=== PATIENT | female | born 1970 | race Caucasian/White ===

== ENCOUNTER 2018-03-14 12:59 | Emergency (ER) | payer SELFPAY ==
--- NOTE | 2018-03-14 13:46 | ER Document Report ---
HPI - HPI Patient complains to provider of: Right heel pain Onset: Other - Several months Pain Level: 4 Context: 47-year-old female complaining of right plantar heel pain that is worse in the mornings for several months. She came in today because she cannot stand the pain anymore. After she gets up and stretches and walks around the pain goes away but then when she is at work it starts hurting again. She does not have insurance and is not seen a doctor or pipe organ installer about this issue. Associated Symptoms: None Exacerbated by: Walking Relieved by: Other - Stretching in the morning helps Similar symptoms previously: Yes Recently seen / treated by doctor: No - ROS ROS below otherwise negative: Yes Systems Reviewed and Negative: Yes All other systems reviewed and negative Past Medical History - General Information source: Patient - Social History Smoking Status: Unknown if Ever Smoked Lives with: Family Family History: Reviewed & Not Pertinent - Medical History Medical History: Negative Surgical Hx: Negative Vertical Provider Document - CONSTITUTIONAL Agree With Documented VS: Yes Exam Limitations: No Limitations - INFECTION CONTROL TRAVEL OUTSIDE OF THE [place] IN LAST 30 DAYS: No - NECK Neck: Supple - MUSCULOSKELETAL/EXTREMETIES Musculoskeletal/Extremeties: MAEW, FROM, Tender - Left plantar fascia adjacent to the heel Notes: Nontender heel squeeze and nontender Achilles - NEURO Level of Consciousness: Awake Motor/Sensory: No Motor Deficit, No Sensory Deficit - DERM Integumentary: No Rash Course - Re-evaluation Re-evalutation: 03/14/18 14:43 Heel spur on x-ray will refer to pipe organ installer - Vital Signs Vital signs: Temp Pulse Resp BP Pulse Ox 98.2 F 93 18 160/105 H 94 03/14/18 13:07 03/14/18 13:07 03/14/18 13:07 03/14/18 13:07 03/14/18 13:07 Discharge - Discharge Clinical Impression: Plantar fasciitis Heel spur Qualifiers: Laterality: right Qualified Code(s): M77.31 - Calcaneal spur, right foot Condition: Good Disposition: HOME, SELF-CARE Instructions: Plantar Fasciitis or Heel Spur ([facility]), Ibuprofen (General) ([facility]) Additional Instructions: motrin for inflammation See the pipe organ installer Prescriptions: Ibuprofen [Motrin 800 mg Tablet] 800 mg PO Q8HP PRN #30 tab PRN Reason: Forms: Return to Work Referrals: ELYSIA VALENCIA DPM [ACTIVE STAFF] - Follow up as needed
--- NOTE | 2018-03-14 14:41 | RADIOLOGY REPORT (SQ) ---
EXAM DESCRIPTION: FOOT RIGHT COMPLETE COMPLETED DATE/TIME: 03/14/2018 2:25 pm REASON FOR STUDY: plantar pain COMPARISON: None. NUMBER OF VIEWS: Three views. TECHNIQUE: AP, lateral and oblique radiographic images acquired of the right foot. LIMITATIONS: None. FINDINGS: MINERALIZATION: Normal. BONES: Deformity of the 5th metatarsal from prior injury. Bony overgrowth in the head of the 1st met atarsal. No fracture. Prominent plantar calcaneal spur. JOINTS: Hallux valgus. SOFT TISSUES: No soft tissue swelling. No foreign body. OTHER: No other significant finding. IMPRESSION: Calcaneal spur. Bunion. TECHNICAL DOCUMENTATION: JOB ID: [id number] [employer]- All Rights Reserved Reading location - IP/workstation name: [email or web address]
[2018-03-14 14:53] VITALS: BP 151/102
== END 2018-03-14 14:53 | disposition home or self-care (01) ==
LOC: ER 12:59
DX: M72.2 Plantar fascial fibromatosis (principal); M77.31 Calcaneal spur, right foot
CPT/HCPCS: 99283

== ENCOUNTER 2018-07-27 16:37 | Inpatient (IN) | payer SELFPAY ==
[2018-07-27] MEDS ORDERED: ASPIRIN 81 MG TABLET, CHEWABLE PO ONE (17:53)
[2018-07-27] MEDS ORDERED: IPRATROPIUM/ALBUTEROL 0.5-2.5 MG/3 ML AMPUL NEB ONE (17:54)
[2018-07-27] MEDS ORDERED: METHYLPREDNISOLONE INJ 125 MG/2 ML SDV IV ONE (17:55)
--- NOTE | 2018-07-27 17:57 | ER Document Report ---
ED Medical Screen (RME) - General Chief Complaint: Shortness Of Breath Stated Complaint: SHORTNESS OF BREATH Time Seen by Provider: 07/27/18 17:43 Mode of Arrival: Ambulatory Information source: Patient Notes: 48-year-old female presents the emergency department with complaints of a productive cough with yellow sputum that started on Monday. She states that she began having fever, chills, diarrhea the next day. Today her temperature was 100.3. Patient states that she took Tylenol around noon. She denies any chest pain, nausea, vomiting, diaphoresis, abdominal pain. Patient is not on home oxygen. She was satting at 88% on arrival. She does have a history of COPD. Patient states that she does not have a nebulizer at home. She is been using her son's albuterol inhaler. She does smoke. I have greeted and performed a rapid initial assessment of this patient. A comprehensive ED assessment and evaluation of the patient, analysis of test results and completion of the medical decision making process will be conducted by additional ED providers. PHYSICAL EXAMINATION: GENERAL: Well-appearing, well-nourished and in no acute distress. HEAD: Atraumatic, normocephalic. EYES: Pupils equal round extraocular movements intact, conjunctiva are normal. ENT: Nares patent NECK: Normal range of motion LUNGS: Tight lung sounds with expiratory wheezing. Musculoskeletal: Normal range of motion TRAVEL OUTSIDE OF THE [place] IN LAST 30 DAYS: No - Related Data Allergies/Adverse Reactions: amoxicillin Allergy (Verified 07/27/18 17:40) Penicillins Allergy (Verified 07/27/18 17:40) Past Medical History - Social History Frequency of alcohol use: Rare Drug Abuse: None Pulmonary Medical History: Reports: Hx Asthma, Hx COPD Renal/ Medical History: Denies: Hx Peritoneal Dialysis Past Surgical History: Reports: Hx Section, Hx Orthopedic Surgery - right foot Physical Exam - Vital signs Vitals: Temp Pulse BP Pulse Ox 100.3 F 111 H 154/102 H 88 L 07/27/18 16:42 07/27/18 16:42 07/27/18 16:42 07/27/18 16:42 Course - Vital Signs Vital signs: Temp Pulse Resp BP Pulse Ox 100.3 F 111 H 154/102 H 88 L 07/27/18 16:42 07/27/18 16:42 07/27/18 16:42 07/27/18 16:42
--- NOTE | 2018-07-27 18:44 | RADIOLOGY REPORT (SQ) ---
EXAM DESCRIPTION: CHEST SINGLE VIEW COMPLETED DATE/TIME: 07/27/2018 6:27 pm REASON FOR STUDY: cough COMPARISON: None. EXAM PARAMETERS: NUMBER OF VIEWS: One view. TECHNIQUE: Single frontal radiographic view of the chest acquired. RADIATION DOSE: NA LIMITATIONS: None. FINDINGS: LUNGS AND PLEURA: No opacities, masses or pneumothorax. No pleural effusion. MEDIASTINUM AND HILAR STRUCTURES: No masses. Contour normal. HEART AND VASCULAR STRUCTURES: Heart normal in size. Normal vasculature. BONES: No acute findings. HARDWARE: None in the chest. OTHER: No other significant finding. IMPRESSION: NO ACUTE RADIOGRAPHIC FINDING IN THE CHEST. TECHNICAL DOCUMENTATION: JOB ID: [id number] [employer] All Rights Reserved Reading location - IP/workstation name: [email or web address]
[2018-07-27 22:03] LABS: ALANINE AMINOTRANSFERASE 37 U/L (9-52); ALBUMIN 4.7 g/dL (3.5-5.0); ALKALINE PHOSPHATASE 45 U/L (38-126); ANION GAP 10 (5-19); ASPARTATE AMINO TRANSFERASE 57 U/L (14-36); BILIRUBIN,DIRECT 0.3 mg/dL (0.0-0.4); BILIRUBIN,TOTAL 0.5 mg/dL (0.2-1.3); BLOOD UREA NITROGEN 13 mg/dL (7-20); CALCIUM 9.2 mg/dL (8.4-10.2); CARBON DIOXIDE 29 mmol/L (22-30); CHLORIDE 100 mmol/L (98-107); GLUCOSE 115 mg/dL (75-110); POTASSIUM 4.4 mmol/L (3.6-5.0); SODIUM 139.4 mmol/L (137-145); TOTAL PROTEIN 7.5 g/dL (6.3-8.2)
[2018-07-28 01:04] LABS: ABSOLUTE LYMPHOCYTES (AUTO) 0.6 10^3/uL (0.5-4.7); ABSOLUTE MONOCYTES (AUTO) 0.1 10^3/uL (0.1-1.4); ABSOLUTE NEUT (AUTO) 6.7 10^3/uL (1.7-8.2); BASOPHILS % (AUTO) 0.3 % (0-2); EOSINOPHILS % (AUTO) 0.1 % (0-6); HEMATOCRIT 34.3 % (36.0-47.0); HEMOGLOBIN 11.8 g/dL (12.0-15.5); LYMPHOCYTES % (AUTO) 8.4 % (13-45); MEAN CORPUSCULAR HEMOGLOBIN 32.8 pg (27.0-33.4); MEAN CORPUSCULAR HGB CONC 34.3 g/dL (32.0-36.0); MEAN CORPUSCULAR VOLUME 96 fl (80-97); MONOCYTES % (AUTO) 1.7 % (3-13); PLATELET COUNT 262 10^3/uL (150-450); RED BLOOD COUNT 3.59 10^6/uL (3.72-5.28); RED CELL DISTRIBUTION WIDTH 15.1 % (11.5-14.0); SEGMENTED NEUTROPHILS % (AUTO) 89.5 % (42-78); TOTAL CELLS COUNTED % (AUTO) 100 %; WHITE BLOOD COUNT 7.5 10^3/uL (4.0-10.5)
[2018-07-28 01:18] LABS: A TYPE INFLUENZA AG NEGATIVE (NEGATIVE); B INFLUENZA AG NEGATIVE (NEGATIVE)
[2018-07-28] MEDS ORDERED: IPRATROPIUM/ALBUTEROL 0.5-2.5 MG/3 ML AMPUL NEB ONE (01:29)
[2018-07-28] MEDS ORDERED: ALBUTEROL SULFATE 0.083% NEB 2.5 MG/3 ML AMPUL NEB ONE (01:29)
--- NOTE | 2018-07-28 01:31 | ER Document Report ---
ED General - General Chief Complaint: Shortness Of Breath Stated Complaint: SHORTNESS OF BREATH Time Seen by Provider: 07/27/18 17:43 Mode of Arrival: Ambulatory Notes: 48-year-old female without chronic medical problems, does currently smoke every day, no previous known diagnosis of COPD or asthma who presents the emergency department with complaints of a productive cough with yellow sputum that started on Monday. Symptoms have been worsening since onset. She states that she began having fever, chills, diarrhea the next day. Today her temperature was 100.3. Patient states that she took Tylenol around noon. She denies any chest pain, nausea, vomiting, diaphoresis, abdominal pain. Patient is not on home oxygen. She was satting at 88% on arrival. Patient states that she does not have a nebulizer at home. She is been using her son's albuterol inhaler. Patient denies that anything seems to improve her symptoms including her son's inhaler. She has not noted that anything seems to worsen her symptoms. No history of similar symptoms in the past. Patient does not have a primary care physician. TRAVEL OUTSIDE OF THE [place] IN LAST 30 DAYS: No - Related Data Allergies/Adverse Reactions: amoxicillin Allergy (Verified 07/27/18 17:40) Penicillins Allergy (Verified 07/27/18 17:40) Past Medical History - General Information source: Patient - Social History Smoking Status: Current Every Day Smoker Frequency of alcohol use: Rare Drug Abuse: None Lives with: Family Family History: Reviewed & Not Pertinent Patient has suicidal ideation: No Patient has homicidal ideation: No Pulmonary Medical History: Reports: Hx Asthma, Hx COPD Renal/ Medical History: Denies: Hx Peritoneal Dialysis Past Surgical History: Reports: Hx Section, Hx Orthopedic Surgery - right foot Review of Systems - Review of Systems Notes: Constitutional: Positive for fever. HENT: Negative for sore throat. Eyes: Negative for visual changes. Cardiovascular: Negative for chest pain. Respiratory: Positive for shortness of breath and cough Gastrointestinal: Negative for abdominal pain, vomiting or diarrhea. Genitourinary: Negative for dysuria. Musculoskeletal: Negative for back pain. Skin: Negative for rash. Neurological: Negative for headaches, weakness or numbness. 10 point ROS negative except as marked above and in HPI. Physical Exam - Vital signs Vitals: Temp Pulse BP Pulse Ox 100.3 F 111 H 154/102 H 88 L 02/08/19 16:42 07/27/18 16:42 07/27/18 16:42 07/27/18 16:42 Interpretation: Tachycardic, Hypoxic Notes: PHYSICAL EXAMINATION: GENERAL: Moderately ill in appearance but in no acute distress HEAD: Atraumatic, normocephalic. EYES: Pupils equal round and reactive to light, extraocular movements intact, sclera anicteric, conjunctiva are normal. ENT: nares patent, oropharynx clear without exudates. Moderately dry mucous membranes. NECK: Normal range of motion, supple without lymphadenopathy LUNGS: Moderately diminished at the bases bilaterally. No wheezing. No distress. HEART: Regular tachycardia without murmurs ABDOMEN: Soft, nontender, normoactive bowel sounds. No guarding, no rebound. No masses appreciated. EXTREMITIES: Normal range of motion, no pitting or edema. No cyanosis. NEUROLOGICAL: No focal neurological deficits. Moves all extremities spontaneously and on command. PSYCH: Normal mood, normal affect. SKIN: Warm, Dry, normal turgor, no rashes or lesions noted. Course - Re-evaluation Re-evalutation: 07/28/18 01:37 Patient presents with cough with sputum production, fever and constitutional symptoms worrisome for either bacterial pneumonia or influenza not formally diagnosed on flu testing. I did should have the patient 3 L of nasal cannula on initial assessment. Throughout my history taking the patient did desaturate down to 86% relatively rapidly with a good read on pulse oximetry. Patient has received multiple nebulizers prior to my assessment as well as steroids. She has no significant wheezing on examination to suggest an obstructive lung presentation. Patient has been started on levofloxacin for empiric coverage of a probable community-acquired pneumonia. Remainder of her labs are otherwise unremarkable. I discussed with Dr. Weber hospitalist who has accepted the patient for admission given her hypoxia. - Vital Signs Vital signs: Temp Pulse Resp BP Pulse Ox 99.1 F 89 16 117/81 94 07/27/18 21:37 07/27/18 21:37 07/27/18 21:37 07/27/18 21:37 07/27/18 21:37 - Laboratory Result Diagrams: 07/28/18 00:53 07/27/18 21:30 Laboratory results interpreted by me: 07/27/18 07/28/18 07/28/18 21:30 00:53 00:53 RBC 3.59 L Hgb 11.8 L Hct 34.3 L RDW 15.1 H Seg Neutrophils % 89.5 H Lymphocytes % 8.4 L Monocytes % 1.7 L Glucose 115 H AST 57 H Creatine Kinase 512 H - Diagnostic Test Radiology reviewed: Image reviewed, Reports reviewed Radiology results interpreted by me: 07/28/18 01:38 Chest x-ray: No acute infiltrate or pneumothorax - EKG Interpretation by Me Additional EKG results interpreted by me: 07/28/18 01:38 Sinus rhythm, rate 71. No ST elevations or depressions. QTC is 466. Discharge - Discharge Clinical Impression: Acute respiratory failure with hypoxia, Cough Dyspnea Qualifiers: Dyspnea type: unspecified Qualified Code(s): R06.00 - Dyspnea, unspecified Condition: Fair Disposition: ADMITTED INPATIENT Admitting Provider: Hospitalist Unit Admitted: Medical Floor
[2018-07-28] MEDS ORDERED: RINGERS SOLUTION,LACTATED 1,000 ML IV ONE (01:35)
[2018-07-28] MEDS ORDERED: LEVOFLOXACIN 750 MG/D5W RTU 750 MG/150 ML RTUPB IV ONE (02:00)
[2018-07-28] MEDS ORDERED: ONDANSETRON 4 MG TAB.RAPDIS PO PRN (02:32)
[2018-07-28] MEDS ORDERED: MAGNESIUM HYDROXIDE SUSP 30 ML UDCUP PO PRN (02:32)
[2018-07-28] MEDS ORDERED: MAG HYDROX/AL HYDROX/SIMETH SUSP 30 ML UDCUP PO PRN (02:32)
[2018-07-28] MEDS ORDERED: ONDANSETRON HCL INJ/PF 4 MG/2 ML SDV IV PRN (02:32)
[2018-07-28] MEDS ORDERED: NICOTINE 21 MG/24 HR PATCH.TD24 TD PRN (02:38)
[2018-07-28] MEDS ORDERED: NALBUPHINE HCL INJ 10 MG/1 ML AMPULE IV PRN (02:38)
[2018-07-28] MEDS ORDERED: IBUPROFEN 800 MG TABLET PO PRN (02:38)
[2018-07-28] MEDS ORDERED: ACETAMINOPHEN 325 MG TABLET PO PRN (02:38)
[2018-07-28] MEDS ORDERED: GUAIFENESIN SYRP 200 MG/10 ML UDC PO PRN (02:39)
[2018-07-28 03:10] LABS: CREATINE KINASE MB 2.87 ng/mL (<4.55); NT PRO BNP 67 pg/mL (<125)
[2018-07-28 03:13] LABS: TROPONIN I < 0.012 ng/mL
[2018-07-28] MEDS: METHYLPREDNISOLONE INJ 40 MG/1 ML SDV IV SCH ×2 (03:14→19:46)
[2018-07-28 03:40] LABS: FREE T3 0.58 pg/mL (2.77-5.27)
[2018-07-28 03:58] LABS: FREE T4 (FREE THYROXINE) < 0.07 ng/dL (0.78-2.19)
--- NOTE | 2018-07-28 05:24 | PDOC H&P ---
History of Present Illness Admission Date/PCP: 07/28/18 01:52 Patient complains of: Cough History of Present Illness: HARJIT HERNANDEZ is a 48 year old female who presented to the emergency room with a 3-day history of a cough with dyspnea. She admits that approximately 3 days ago she began having a cough that was initially productive of thick yellow mucus in small amounts but has subsequently become nonproductive or productive only of thin clear mucus. The cough is associated with dyspnea initially only with exertion but over the course of her illness dyspnea has become severe and present even when she is at rest. Additionally over the course of the illness she has experienced generalized malaise with a subjective fever and chills beginning the day after the onset of the illness and still being present at the time of her presentation. She also had diarrhea for 1 day beginning the day after her initial symptoms. She denies prior similar symptoms and has not identified any aggravating or ameliorating factors for her dyspnea and cough. She admits use of her sons inhaler but it did not have any positive effect on her symptoms. In the emergency room she was found to have a oxygen saturation of 88% and despite aggressive treatment with steroids and nebulizer therapy she was unable to maintain an oxygen saturation greater than 93% without supplemental oxygen. She was subsequently admitted to the hospital for further evaluation and treatment of her acute hypoxic respiratory failure Past Medical History Cardiac Medical History: Denies: Coronary Artery Disease, Hypertension Pulmonary Medical History: Denies: Asthma, Chronic Obstructive Pulmonary Disease (COPD), Respiratory Failure EENT Medical History: Denies: Cataracts, Nose - Epistaxis Neurological Medical History: Denies: Hemorrhagic CVA, Ischemic CVA, Seizures Endocrine Medical History: Denies: Diabetes Mellitus Type 1, Diabetes Mellitus Type 2 Renal/ Medical History: Denies: Chronic Kidney Disease, Nephrolithiasis Malignancy Medical History: Reports: None GI Medical History: Denies: Cirrhosis, Hepatitis Musculoskeltal Medical History: Denies: Arthritis, Gout Skin Medical History: Denies: Eczema, Psoriasis Psychiatric Medical History: Reports: Tobacco Dependency Denies: Alcohol Dependency, Substance Abuse Traumatic Medical History: Reports: None Hematology: Denies: Anemia, Bleeding Tendencies Infectious Medical History: Reports: None Past Surgical History Past Surgical History: Reports: Section, Orthopedic Surgery - right foot Social History Information Source: Patient Lives with: Family Smoking Status: Current Every Day Smoker Frequency of Alcohol Use: Rare Hx Recreational Drug Use: No Drugs: None Hx Prescription Drug Abuse: No - Advance Directive Resuscitation Status: Full Code Surrogate healthcare decision maker:: Family History Family History: CAD, Hypertension Parental Family History Reviewed: Yes Children Family History Reviewed: No Sibling(s) Family History Reviewed.: Yes Medication/Allergy Home Medications: Ibuprofen [Motrin 800 mg Tablet] 800 mg PO Q8HP PRN #30 tab 03/14/18 Allergies/Adverse Reactions: amoxicillin Allergy (Verified 07/27/18 17:40) Penicillins Allergy (Verified 07/27/18 17:40) Review of Systems Constitutional: PRESENT: as per HPI, chills, fever(s) Eyes: ABSENT: visual disturbances, other - Eye pain Ears: ABSENT: hearing changes, other - Ear pain Nose, Mouth, and Throat: ABSENT: mouth pain, sore throat Cardiovascular: PRESENT: as per HPI, dyspnea on exertion. ABSENT: chest pain, edema, orthropnea, palpitations Respiratory: PRESENT: as per HPI, cough, dyspnea, sputum. ABSENT: hemoptysis Gastrointestinal: PRESENT: diarrhea. ABSENT: abdominal pain, constipation, nausea, vomiting Genitourinary: ABSENT: dysuria, hematuria Musculoskeletal: ABSENT: deformity, joint swelling Integumentary: ABSENT: pruritus, rash Neurological: ABSENT: confusion, convulsions, memory loss Psychiatric: ABSENT: anxiety, depression Endocrine: ABSENT: cold intolerance, heat intolerance Hematologic/Lymphatic: ABSENT: easy bleeding, easy bruising Physical Exam Vital Signs: Temp Pulse Resp BP Pulse Ox 99.1 F 89 16 117/81 94 07/27/18 21:37 07/27/18 21:37 07/27/18 21:37 07/27/18 21:37 07/27/18 21:37 Intake & Output 07/26/18 07/27/18 07/28/18 23:59 23:59 23:59 Weight 62.4 kg General appearance: PRESENT: no acute distress, cooperative, other - On O2 via nasal cannula at 3 L/min Head exam: PRESENT: atraumatic, normocephalic Eye exam: PRESENT: conjunctiva pink, EOMI. ABSENT: scleral icterus Ear exam: PRESENT: normal external ear exam. ABSENT: bleeding, drainage Mouth exam: PRESENT: dry mucosa, neck supple Neck exam: ABSENT: JVD, thyromegaly, tracheal deviation Respiratory exam: PRESENT: decreased breath sounds - Decreased breath sounds in all cordova with poor air movement noted, prolonged expiratory phas - Severely prolonged expiratory phase, symmetrical, wheezes - End expiratory wheezes, other - On supplemental O2 at 3 L/min via nasal cannula Cardiovascular exam: PRESENT: RRR. ABSENT: clicks, gallop, rubs Pulses: PRESENT: normal radial pulses, normal dorsalis pedis pul Vascular exam: PRESENT: normal capillary refill. ABSENT: pallor GI/Abdominal exam: PRESENT: normal bowel sounds, soft Rectal exam: PRESENT: deferred Extremities exam: ABSENT: joint swelling, pedal edema Musculoskeletal exam: ABSENT: full ROM, normal inspection Neurological exam: PRESENT: alert, oriented to person, oriented to place, oriented to time, oriented to situation, CN II-XII grossly intact. ABSENT: motor sensory deficit Psychiatric exam: PRESENT: appropriate affect, normal mood Skin exam: PRESENT: dry, intact, warm. ABSENT: jaundice, rash, urticaria Results Laboratory Results: 07/28/18 00:53 07/27/18 21:30 07/27/18 07/27/18 07/27/18 19:42 19:42 21:30 WBC Cancelled RBC Cancelled Hgb Cancelled Hct Cancelled MCV Cancelled MCH Cancelled MCHC Cancelled RDW Cancelled Plt Count Cancelled Seg Neutrophils % Cancelled Lymphocytes % Cancelled Monocytes % Cancelled Eosinophils % Cancelled Basophils % Cancelled Absolute Neutrophils Cancelled Absolute Lymphocytes Cancelled Absolute Monocytes Cancelled Absolute Eosinophils Cancelled Absolute Basophils Cancelled Sodium Cancelled 139.4 Potassium Cancelled 4.4 Chloride Cancelled 100 Carbon Dioxide Cancelled 29 Anion Gap Cancelled 10 BUN Cancelled 13 Creatinine Cancelled 0.95 Est GFR ( Amer) Cancelled > 60 Est GFR (Non-Af Amer) Cancelled > 60 Glucose Cancelled 115 H Calcium Cancelled 9.2 Total Bilirubin Cancelled 0.5 AST Cancelled 57 H ALT Cancelled 37 Alkaline Phosphatase Cancelled 45 Total Protein Cancelled 7.5 Albumin Cancelled 4.7 07/28/18 00:53 WBC 7.5 RBC 3.59 L Hgb 11.8 L Hct 34.3 L MCV 96 MCH 32.8 MCHC 34.3 RDW 15.1 H Plt Count 262 Seg Neutrophils % 89.5 H Lymphocytes % 8.4 L Monocytes % 1.7 L Eosinophils % 0.1 Basophils % 0.3 Absolute Neutrophils 6.7 Absolute Lymphocytes 0.6 Absolute Monocytes 0.1 Absolute Eosinophils 0.0 Absolute Basophils 0.0 Sodium Potassium Chloride Carbon Dioxide Anion Gap BUN Creatinine Est GFR ( Amer) Est GFR (Non-Af Amer) Glucose Calcium Total Bilirubin AST ALT Alkaline Phosphatase Total Protein Albumin 07/27/18 07/27/18 19:42 21:30 Troponin I Cancelled < 0.012 Impressions: Chest X-Ray 07/27/18 17:54 IMPRESSION: NO ACUTE RADIOGRAPHIC FINDING IN THE CHEST. Assessment & Plan - Diagnosis (1) Acute respiratory failure with hypoxia Is this a current diagnosis for this admission?: Yes Plan: Patient be maintained on respiratory support with supplemental oxygen as long as required. (2) Acute exacerbation of chronic obstructive pulmonary disease (COPD) Is this a current diagnosis for this admission?: Yes Plan: Patient will be treated with Xopenex, Atrovent, Pulmicort and albuterol via nebulizer. She will receive intravenous Solu-Medrol and will be on respiratory support with supplemental oxygen as long as required and in any form that is required. She will receive additional symptomatic and supportive cares as needed. (3) Tobacco use disorder, moderate, dependence Is this a current diagnosis for this admission?: Yes Plan: Smoking cessation is advised and counseled briefly. A nicotine replacement patch is available to the patient. (4) Anemia, normocytic normochromic Is this a current diagnosis for this admission?: Yes Plan: Patient's anemia will be evaluated initially during her hospital course with a basic anemia profile being obtained and further investigation and/or treatment based on those results. - Time Time Spent: 30 to 50 Minutes Critical Time spent with patient: Less than 15 minutes Smoking Cessation Education: 3 to 10 minutes Medications reviewed and adjusted accordingly: Yes Anticipated discharge: Home
[2018-07-28] MEDS: NORMAL SALINE 1000 ML 1,000 ML IV PRN ×3 (07:02→21:11)
[2018-07-28] MEDS: BUDESONIDE NEB 0.5 MG/2 ML AMPUL NEB SCH ×2 (07:55→20:02)
[2018-07-28] MEDS: IPRATROPIUM BROMIDE 0.02% NEB 0.5 MG/2.5 ML AMPUL NEB SCH ×2 (07:55→16:15)
[2018-07-28] MEDS: LEVALBUTEROL HCL NEB 1.25 MG/3 ML AMPUL NEB SCH ×2 (07:55→16:15)
[2018-07-28] MEDS ORDERED: FONDAPARINUX SODIUM INJ 2.5 MG/0.5 ML DISP.SYRIN SUBCUT SCH (08:00)
[2018-07-28] MEDS: ACETYLCYSTEINE 20% SOLN 800 MG/4 ML VIAL.NEB NEB SCH ×2 (08:05→20:02)
[2018-07-28 09:38] LABS: TROPONIN I < 0.012 ng/mL
[2018-07-28] MEDS: FAMOTIDINE 20 MG TABLET PO SCH ×2 (10:57→21:11)
[2018-07-28] MEDS: DOCUSATE SODIUM 100 MG CAPSULE PO SCH ×2 (10:57→18:04)
[2018-07-28] MEDS: PREDNISONE 20 MG TABLET PO SCH (10:57)
[2018-07-28] MEDS: FONDAPARINUX SODIUM INJ 2.5 MG/0.5 ML DISP.SYRIN SUBCUT SCH (10:57)
--- NOTE | 2018-07-28 11:51 | Progress Note ---
Provider Note Provider Note: Patient admitted overnight. Feeling much better this AM, however still requiring supplemental O2 which is new. Continues to smoke however has cut back from 1PPD to 0.5PPD. Has not had hospitalization for COPD exacerbation previously. Labs notable for TSH 34.5 and Free T4 <0.07. Patient denies overt signs or symptoms of hypothyroidism. Plan - Given improvement, d/c IV steroids and started PO prednisone for 4 additional days - Started synthroid, will need to have repeat thyroid studies in 2 months - C/s-ed social work for assistance with insurance and finding a PCP
[2018-07-28] MEDS: LEVOTHYROXINE SODIUM 0.025 MG TABLET PO SCH (13:32)
[2018-07-28 15:46] LABS: CREATINE KINASE MB 5.24 ng/mL (<4.55)
[2018-07-28 15:49] LABS: TROPONIN I < 0.012 ng/mL
[2018-07-28] MEDS: ALBUTEROL SULFATE 0.083% NEB 2.5 MG/3 ML AMPUL NEB PRN (20:02)
--- NOTE | 2018-07-28 20:11 | EKG REPORT ---
SEVERITY:- BORDERLINE ECG - SINUS RHYTHM BORDERLINE T ABNORMALITIES, ANT-LAT LEADS : Confirmed by: Aleksandra Arroyo 28-Jul-2018 20:11:01
[2018-07-28] MEDS: LEVOFLOXACIN 750 MG TABLET PO SCH (21:11)
[2018-07-29] MEDS: IPRATROPIUM BROMIDE 0.02% NEB 0.5 MG/2.5 ML AMPUL NEB SCH ×3 (01:40→15:33)
[2018-07-29] MEDS: LEVALBUTEROL HCL NEB 1.25 MG/3 ML AMPUL NEB SCH ×3 (01:40→15:31)
[2018-07-29] MEDS: LEVOTHYROXINE SODIUM 0.025 MG TABLET PO SCH (05:19)
[2018-07-29 07:11] LABS: ABSOLUTE LYMPHOCYTES (AUTO) 1.3 10^3/uL (0.5-4.7); ABSOLUTE MONOCYTES (AUTO) 0.6 10^3/uL (0.1-1.4); ABSOLUTE NEUT (AUTO) 10.5 10^3/uL (1.7-8.2); HEMATOCRIT 30.6 % (36.0-47.0); HEMOGLOBIN 10.5 g/dL (12.0-15.5); LYMPHOCYTES % (AUTO) 10.8 % (13-45); MEAN CORPUSCULAR HEMOGLOBIN 32.9 pg (27.0-33.4); MEAN CORPUSCULAR HGB CONC 34.4 g/dL (32.0-36.0); MEAN CORPUSCULAR VOLUME 96 fl (80-97); MONOCYTES % (AUTO) 4.8 % (3-13); PLATELET COUNT 277 10^3/uL (150-450); SEGMENTED NEUTROPHILS % (AUTO) 84.4 % (42-78); TOTAL CELLS COUNTED % (AUTO) 100 %; WHITE BLOOD COUNT 12.4 10^3/uL (4.0-10.5)
[2018-07-29 07:32] LABS: ANION GAP 7 (5-19); BLOOD UREA NITROGEN 13 mg/dL (7-20); CALCIUM 8.9 mg/dL (8.4-10.2); CARBON DIOXIDE 30 mmol/L (22-30); CHLORIDE 106 mmol/L (98-107); CHOLESTEROL 306.37 mg/dL (0-200); GLUCOSE 79 mg/dL (75-110); SODIUM 143.3 mmol/L (137-145); TRIGLYCERIDES 78 mg/dL (<150)
[2018-07-29 07:43] LABS: DIRECT LDL 212 mg/dL (<100)
[2018-07-29] MEDS: BUDESONIDE NEB 0.5 MG/2 ML AMPUL NEB SCH ×2 (07:50→21:00)
[2018-07-29] MEDS: ACETYLCYSTEINE 20% SOLN 800 MG/4 ML VIAL.NEB NEB SCH ×2 (07:50→21:00)
[2018-07-29] MEDS: FONDAPARINUX SODIUM INJ 2.5 MG/0.5 ML DISP.SYRIN SUBCUT SCH (07:55)
[2018-07-29] MEDS: DOCUSATE SODIUM 100 MG CAPSULE PO SCH ×2 (10:50→18:36)
[2018-07-29] MEDS: PREDNISONE 20 MG TABLET PO SCH (10:51)
[2018-07-29] MEDS: FAMOTIDINE 20 MG TABLET PO SCH ×2 (10:51→22:22)
--- NOTE | 2018-07-29 13:38 | PDOC PROGRESS REPORT ---
Subjective Progress Note for:: 07/29/18 Subjective:: Doing better overnight. Breathing significantly improved. Notes occasional nausea which improves with Zofran. Cough persists and mucus production is more as is looser. Denies fevers, chills, CP, abdominal pain. PO intake adequate. Walked halls yesterday. NO other complaints. Reason For Visit: ACUTE EXACERBATION OF COPD Physical Exam Vital Signs: Temp Pulse Resp BP Pulse Ox 98.3 F 69 18 130/75 H 94 07/29/18 11:11 07/29/18 11:11 07/29/18 11:11 07/29/18 11:11 07/29/18 11:11 Intake & Output 07/28/18 07/29/18 07/30/18 06:59 06:59 06:59 Intake Total 1000 4850 Balance 1000 4850 Weight 60.9 kg 62.3 kg General appearance: PRESENT: no acute distress, cooperative, well-developed, well-nourished Mouth exam: PRESENT: dry mucosa Throat exam: ABSENT: tonsillar erythema Respiratory exam: PRESENT: unlabored, wheezes - Occasional expiratory wheezes, other - Improve aeration Cardiovascular exam: PRESENT: +S1, +S2. ABSENT: tachycardia GI/Abdominal exam: PRESENT: normal bowel sounds, soft. ABSENT: tenderness Extremities exam: ABSENT: +1 edema Musculoskeletal exam: PRESENT: ambulatory Neurological exam: PRESENT: alert, awake, CN II-XII grossly intact. ABSENT: aphasic Psychiatric exam: PRESENT: appropriate affect, normal mood Skin exam: PRESENT: dry, intact Results Laboratory Results: 07/29/18 06:34 07/29/18 06:34 07/29/18 07/29/18 06:34 06:34 WBC 12.4 H RBC 3.20 L Hgb 10.5 L Hct 30.6 L MCV 96 MCH 32.9 MCHC 34.4 RDW 15.0 H Plt Count 277 Seg Neutrophils % 84.4 H Lymphocytes % 10.8 L Monocytes % 4.8 Eosinophils % 0.0 Basophils % 0.0 Absolute Neutrophils 10.5 H Absolute Lymphocytes 1.3 Absolute Monocytes 0.6 Absolute Eosinophils 0.0 Absolute Basophils 0.0 Sodium 143.3 Potassium 4.0 Chloride 106 Carbon Dioxide 30 Anion Gap 7 BUN 13 Creatinine 0.79 Est GFR ( Amer) > 60 Est GFR (Non-Af Amer) > 60 Glucose 79 Calcium 8.9 Magnesium 2.2 Triglycerides 78 Cholesterol 306.37 H LDL Cholesterol Direct 212 H VLDL Cholesterol 16.0 HDL Cholesterol 48 07/27/18 07/27/18 07/28/18 19:42 21:30 00:53 Creatine Kinase CK-MB (CK-2) 2.87 Troponin I Cancelled < 0.012 < 0.012 NT-Pro-B Natriuret Pep 67 07/28/18 07/28/18 07/28/18 00:53 08:46 08:58 Creatine Kinase 512 H 543 H CK-MB (CK-2) 4.40 Troponin I < 0.012 NT-Pro-B Natriuret Pep 07/28/18 07/28/18 14:36 14:36 Creatine Kinase 508 H CK-MB (CK-2) 5.24 H Troponin I < 0.012 NT-Pro-B Natriuret Pep Impressions: Chest X-Ray 07/27/18 17:54 IMPRESSION: NO ACUTE RADIOGRAPHIC FINDING IN THE CHEST. Assessment & Plan - Diagnosis (1) Acute exacerbation of chronic obstructive pulmonary disease (COPD) Is this a current diagnosis for this admission?: Yes Plan: Markedly improved since admission - Not requiring supplemental O2 at time of exam this AM - Continue management with breathing treatments, Levaquin, and Prednisone 40mg daily PO Outpatient plan - Complete short course of Levaquin 750mg, last dose is 07/31 - Complete prednisone 40mg daily, end date is 08/01 - will need script for Spiriva Prior to discharge should meet with social work for referral for insurance and PCP (2) Acute respiratory failure with hypoxia Is this a current diagnosis for this admission?: Yes Plan: Improved, no off supplemental O2 (3) Cough Is this a current diagnosis for this admission?: Yes Plan: Persists however looser today - COntinue Guaifenesin and Mucomist (4) Hypothyroidism Is this a current diagnosis for this admission?: Yes Plan: New diagnosis based on labs - Started on Low dose synthroid. Will need script at discharge - Should have repeat TFTs in 2 months (5) Tobacco use disorder, moderate, dependence Is this a current diagnosis for this admission?: Yes - Time Time Spent with patient: Less than 15 minutes Anticipated discharge: Home, Home with Homehealth Within: within 24 hours
[2018-07-29] MEDS: ALBUTEROL SULFATE 0.083% NEB 2.5 MG/3 ML AMPUL NEB PRN (21:00)
[2018-07-29] MEDS: LEVOFLOXACIN 750 MG TABLET PO SCH (22:22)
[2018-07-30] MEDS: LEVALBUTEROL HCL NEB 1.25 MG/3 ML AMPUL NEB SCH ×3 (00:58→15:54)
[2018-07-30] MEDS: IPRATROPIUM BROMIDE 0.02% NEB 0.5 MG/2.5 ML AMPUL NEB SCH ×3 (00:58→15:53)
[2018-07-30] MEDS: LEVOTHYROXINE SODIUM 0.025 MG TABLET PO SCH (05:10)
[2018-07-30 06:31] LABS: ABSOLUTE LYMPHOCYTES (AUTO) 1.8 10^3/uL (0.5-4.7); ABSOLUTE MONOCYTES (AUTO) 0.5 10^3/uL (0.1-1.4); ABSOLUTE NEUT (AUTO) 8.4 10^3/uL (1.7-8.2); BASOPHILS % (AUTO) 0.1 % (0-2); HEMATOCRIT 32.8 % (36.0-47.0); HEMOGLOBIN 11.3 g/dL (12.0-15.5); MEAN CORPUSCULAR HEMOGLOBIN 32.9 pg (27.0-33.4); MEAN CORPUSCULAR HGB CONC 34.4 g/dL (32.0-36.0); MEAN CORPUSCULAR VOLUME 96 fl (80-97); PLATELET COUNT 304 10^3/uL (150-450); RED BLOOD COUNT 3.43 10^6/uL (3.72-5.28); RED CELL DISTRIBUTION WIDTH 14.9 % (11.5-14.0); SEGMENTED NEUTROPHILS % (AUTO) 77.9 % (42-78); TOTAL CELLS COUNTED % (AUTO) 100 %; WHITE BLOOD COUNT 10.8 10^3/uL (4.0-10.5)
[2018-07-30 06:50] LABS: ANION GAP 9 (5-19); BLOOD UREA NITROGEN 10 mg/dL (7-20); CALCIUM 8.7 mg/dL (8.4-10.2); CARBON DIOXIDE 32 mmol/L (22-30); CHLORIDE 100 mmol/L (98-107); GLUCOSE 80 mg/dL (75-110); POTASSIUM 3.7 mmol/L (3.6-5.0); SODIUM 140.7 mmol/L (137-145)
[2018-07-30] MEDS: FONDAPARINUX SODIUM INJ 2.5 MG/0.5 ML DISP.SYRIN SUBCUT SCH (09:15)
[2018-07-30] MEDS: BUDESONIDE NEB 0.5 MG/2 ML AMPUL NEB SCH ×2 (09:51→20:06)
[2018-07-30] MEDS: ACETYLCYSTEINE 20% SOLN 800 MG/4 ML VIAL.NEB NEB SCH ×2 (09:52→20:06)
[2018-07-30] MEDS: PREDNISONE 20 MG TABLET PO SCH ×2 (10:49→10:57)
[2018-07-30] MEDS: FAMOTIDINE 20 MG TABLET PO SCH ×2 (10:50→22:25)
[2018-07-30] MEDS: DOCUSATE SODIUM 100 MG CAPSULE PO SCH ×2 (10:54→18:01)
[2018-07-30] MEDS ORDERED: PREDNISONE 20 MG TABLET ONE (10:57)
[2018-07-30] MEDS: ALBUTEROL SULFATE 0.083% NEB 2.5 MG/3 ML AMPUL NEB PRN (20:06)
[2018-07-30] MEDS: LEVOFLOXACIN 750 MG TABLET PO SCH (22:25)
--- NOTE | 2018-07-30 23:40 | PDOC PROGRESS REPORT ---
Subjective Progress Note for:: 07/30/18 Subjective:: 48 y.o. F with a hx of COPD comes to [facility] for dyspnea. She is admitted to the hospitalist service for a COPD exacerbation. The patient was seen this afternoon on rounds. She is resting comfortably in bed on nasal cannula. Nursing staff reports the patient was coughing a great deal this morning. The patient's SPO2 dropped to low 80s. The patient states she 'does not feel as well today as she did yesterday.' Lungs clear to auscultation. The patient does not appear to be in respiratory distress. No evidence of labored breathing. No central or peripheral cyanosis. Reason For Visit: ACUTE EXACERBATION OF COPD Physical Exam Vital Signs: Temp Pulse Resp BP Pulse Ox 98.0 F 65 14 131/81 H 97 07/30/18 21:30 07/30/18 21:30 07/30/18 21:30 07/30/18 21:30 07/30/18 21:30 Intake & Output 07/29/18 07/30/18 07/31/18 06:59 06:59 06:59 Intake Total 4850 550 990 Balance 4850 550 990 Weight 62.3 kg General appearance: PRESENT: no acute distress, well-developed, well-nourished Head exam: PRESENT: atraumatic, normocephalic Eye exam: PRESENT: conjunctiva pink, EOMI, PERRLA. ABSENT: scleral icterus Ear exam: PRESENT: normal external ear exam Mouth exam: PRESENT: moist, tongue midline Neck exam: ABSENT: carotid bruit, JVD, lymphadenopathy, thyromegaly Respiratory exam: PRESENT: clear to auscultation suraj. ABSENT: rales, rhonchi, wheezes Cardiovascular exam: PRESENT: RRR. ABSENT: diastolic murmur, rubs, systolic murmur Pulses: PRESENT: normal dorsalis pedis pul Vascular exam: PRESENT: normal capillary refill GI/Abdominal exam: PRESENT: normal bowel sounds, soft. ABSENT: distended, guarding, mass, organolmegaly, rebound, tenderness Rectal exam: PRESENT: deferred Extremities exam: PRESENT: full ROM. ABSENT: calf tenderness, clubbing, pedal edema Neurological exam: PRESENT: alert, awake, oriented to person, oriented to place, oriented to time, oriented to situation, CN II-XII grossly intact. ABSENT: motor sensory deficit Psychiatric exam: PRESENT: appropriate affect, normal mood. ABSENT: homicidal ideation, suicidal ideation Skin exam: PRESENT: dry, intact, warm. ABSENT: cyanosis, rash Results Laboratory Results: 07/30/18 06:15 07/30/18 06:15 07/30/18 07/30/18 06:15 06:15 WBC 10.8 H RBC 3.43 L Hgb 11.3 L Hct 32.8 L MCV 96 MCH 32.9 MCHC 34.4 RDW 14.9 H Plt Count 304 Seg Neutrophils % 77.9 Lymphocytes % 17.0 Monocytes % 5.0 Eosinophils % 0.0 Basophils % 0.1 Absolute Neutrophils 8.4 H Absolute Lymphocytes 1.8 Absolute Monocytes 0.5 Absolute Eosinophils 0.0 Absolute Basophils 0.0 Sodium 140.7 Potassium 3.7 Chloride 100 Carbon Dioxide 32 H Anion Gap 9 BUN 10 Creatinine 0.77 Est GFR ( Amer) > 60 Est GFR (Non-Af Amer) > 60 Glucose 80 Calcium 8.7 Magnesium 2.0 07/27/18 07/27/18 07/28/18 19:42 21:30 00:53 Creatine Kinase CK-MB (CK-2) 2.87 Troponin I Cancelled < 0.012 < 0.012 NT-Pro-B Natriuret Pep 67 07/28/18 07/28/18 07/28/18 00:53 08:46 08:58 Creatine Kinase 512 H 543 H CK-MB (CK-2) 4.40 Troponin I < 0.012 NT-Pro-B Natriuret Pep 07/28/18 07/28/18 14:36 14:36 Creatine Kinase 508 H CK-MB (CK-2) 5.24 H Troponin I < 0.012 NT-Pro-B Natriuret Pep Impressions: Chest X-Ray 07/27/18 17:54 IMPRESSION: NO ACUTE RADIOGRAPHIC FINDING IN THE CHEST. Status: Imported from PACS Assessment & Plan - Diagnosis (1) Acute exacerbation of chronic obstructive pulmonary disease (COPD) Is this a current diagnosis for this admission?: Yes Plan: Secondary to URI Continue management with PRN and scheduled nebulizers, Levaquin, and Prednisone 40mg daily PO Outpatient plan: - Complete short course of Levaquin 750mg, last dose is 07/31 - Complete prednisone 40mg daily, end date is 08/01 - will need script for Spiriva Will refer to case management about insurance and lack of PCP (2) Acute respiratory failure with hypoxia Is this a current diagnosis for this admission?: Yes Plan: plan as above (3) Cough Is this a current diagnosis for this admission?: Yes Plan: Continue Guaifenesin and Mucomist (4) Tobacco use disorder, moderate, dependence Is this a current diagnosis for this admission?: Yes (5) Hypothyroidism Is this a current diagnosis for this admission?: Yes Plan: New diagnosis based on labs Started on Low dose synthroid. Will need prescription at discharge Should have repeat thyroid function test in 2 months - Time Time Spent with patient: 15-24 minutes Medications reviewed and adjusted accordingly: Yes Anticipated discharge: Home - Inpatient Certification Based on my medical assessment, after consideration of the patient's comorbidities, presenting symptoms, or acuity I expect that the services needed warrant INPATIENT care.: Yes I certify that my determination is in accordance with my understanding of Medicare's requirements for reasonable and necessary INPATIENT services [42 CFR 412.3e].: Yes Medical Necessity: Risk of Complication if Not Cared For in Hospital - Plan Summary Plan Summary: APPROPRIATE FOR DISCHARGE TOMORROW IF PATIENT IS ABLE TO WEAN FROM O2
[2018-07-31] MEDS: IPRATROPIUM BROMIDE 0.02% NEB 0.5 MG/2.5 ML AMPUL NEB SCH ×3 (00:44→16:41)
[2018-07-31] MEDS: LEVALBUTEROL HCL NEB 1.25 MG/3 ML AMPUL NEB SCH ×3 (00:44→16:41)
[2018-07-31] MEDS: LEVOTHYROXINE SODIUM 0.025 MG TABLET PO SCH (05:53)
[2018-07-31 06:35] LABS: ABSOLUTE LYMPHOCYTES (AUTO) 1.9 10^3/uL (0.5-4.7); ABSOLUTE MONOCYTES (AUTO) 0.5 10^3/uL (0.1-1.4); ABSOLUTE NEUT (AUTO) 7.5 10^3/uL (1.7-8.2); BASOPHILS % (AUTO) 0.1 % (0-2); HEMATOCRIT 34.6 % (36.0-47.0); LYMPHOCYTES % (AUTO) 19.1 % (13-45); MEAN CORPUSCULAR HGB CONC 34.7 g/dL (32.0-36.0); MEAN CORPUSCULAR VOLUME 95 fl (80-97); MONOCYTES % (AUTO) 4.6 % (3-13); PLATELET COUNT 339 10^3/uL (150-450); RED BLOOD COUNT 3.64 10^6/uL (3.72-5.28); SEGMENTED NEUTROPHILS % (AUTO) 76.2 % (42-78); TOTAL CELLS COUNTED % (AUTO) 100 %; WHITE BLOOD COUNT 9.8 10^3/uL (4.0-10.5)
[2018-07-31 06:57] LABS: ANION GAP 8 (5-19); BLOOD UREA NITROGEN 13 mg/dL (7-20); CALCIUM 9.6 mg/dL (8.4-10.2); CARBON DIOXIDE 33 mmol/L (22-30); CHLORIDE 100 mmol/L (98-107); GLUCOSE 75 mg/dL (75-110); POTASSIUM 3.8 mmol/L (3.6-5.0); SODIUM 140.8 mmol/L (137-145)
[2018-07-31] MEDS: BUDESONIDE NEB 0.5 MG/2 ML AMPUL NEB SCH ×2 (07:45→21:16)
[2018-07-31] MEDS: ACETYLCYSTEINE 20% SOLN 800 MG/4 ML VIAL.NEB NEB SCH ×2 (08:36→21:16)
[2018-07-31] MEDS: FONDAPARINUX SODIUM INJ 2.5 MG/0.5 ML DISP.SYRIN SUBCUT SCH (08:40)
[2018-07-31] MEDS: FAMOTIDINE 20 MG TABLET PO SCH ×2 (10:11→22:05)
[2018-07-31] MEDS: DOCUSATE SODIUM 100 MG CAPSULE PO SCH ×2 (10:11→18:20)
[2018-07-31] MEDS: PREDNISONE 20 MG TABLET PO SCH (10:11)
[2018-07-31] MEDS: ALBUTEROL SULFATE 0.083% NEB 2.5 MG/3 ML AMPUL NEB PRN (21:16)
[2018-07-31] MEDS: LEVOFLOXACIN 750 MG TABLET PO SCH (22:05)
[2018-08-01] MEDS: LEVALBUTEROL HCL NEB 1.25 MG/3 ML AMPUL NEB SCH ×3 (00:42→20:05)
[2018-08-01] MEDS: IPRATROPIUM BROMIDE 0.02% NEB 0.5 MG/2.5 ML AMPUL NEB SCH ×3 (00:42→20:05)
[2018-08-01] MEDS: LEVOTHYROXINE SODIUM 0.025 MG TABLET PO SCH (05:50)
[2018-08-01] MEDS: BUDESONIDE NEB 0.5 MG/2 ML AMPUL NEB SCH (07:29)
[2018-08-01] MEDS: ACETYLCYSTEINE 20% SOLN 800 MG/4 ML VIAL.NEB NEB SCH (07:29)
[2018-08-01] MEDS: PREDNISONE 20 MG TABLET PO SCH (09:52)
[2018-08-01] MEDS: FAMOTIDINE 20 MG TABLET PO SCH ×2 (09:52→21:47)
[2018-08-01] MEDS: FONDAPARINUX SODIUM INJ 2.5 MG/0.5 ML DISP.SYRIN SUBCUT SCH (09:52)
[2018-08-01] MEDS: DOCUSATE SODIUM 100 MG CAPSULE PO SCH ×2 (09:53→19:42)
[2018-08-01] MEDS ORDERED: ALBUTEROL SULFATE 0.083% NEB 2.5 MG/3 ML AMPUL NEB PRN (16:10)
--- NOTE | 2018-08-01 16:22 | PDOC PROGRESS REPORT ---
Subjective Progress Note for:: 08/01/18 Subjective:: 48 y.o. F with a hx of COPD comes to [facility] for dyspnea. She is admitted to the hospitalist service for a COPD exacerbation. The patient is seen on afternoon rounds. She is found resting in bed comfortably on supplemental oxygen at 1 L/min. Patient reports that she has slight dyspnea on exertion, but otherwise is feeling much improved. She does have a wet sounding but nonproductive cough. Overall she is feeling much better. She denies fever, chills, chest pain, palpitations, orthopnea, abdominal pain, nausea vomiting diarrhea, extremity swelling. Her primary concern at present is related to financial barriers to outpatient follow-up and obtaining medications. Otherwise, she has no new questions or concerns. No concerns per nursing. Reason For Visit: ACUTE EXACERBATION OF COPD Physical Exam Vital Signs: Temp Pulse Resp BP Pulse Ox 98.5 F 77 18 132/87 H 92 08/01/18 15:27 08/01/18 15:27 08/01/18 15:27 08/01/18 15:27 08/01/18 15:27 Intake & Output 07/31/18 08/01/18 08/02/18 06:59 06:59 06:59 Intake Total 1511 350 Balance 1511 350 Weight 61.5 kg 62.5 kg General appearance: PRESENT: no acute distress, cooperative, well-developed, well-nourished Head exam: PRESENT: atraumatic, normocephalic Eye exam: PRESENT: conjunctiva pink, EOMI, PERRLA. ABSENT: scleral icterus Ear exam: PRESENT: normal external ear exam Mouth exam: PRESENT: moist, tongue midline Neck exam: ABSENT: carotid bruit, JVD, lymphadenopathy, thyromegaly Respiratory exam: PRESENT: clear to auscultation suraj, decreased breath sounds - bibasilar, symmetrical, unlabored. ABSENT: rales, rhonchi, wheezes Cardiovascular exam: PRESENT: RRR, +S1, +S2. ABSENT: diastolic murmur, rubs, systolic murmur Pulses: PRESENT: normal dorsalis pedis pul Vascular exam: PRESENT: normal capillary refill GI/Abdominal exam: PRESENT: normal bowel sounds, soft. ABSENT: distended, guarding, mass, organolmegaly, rebound, tenderness Rectal exam: PRESENT: deferred Extremities exam: PRESENT: full ROM. ABSENT: calf tenderness, clubbing, pedal edema Neurological exam: PRESENT: alert, awake, oriented to person, oriented to place, oriented to time, oriented to situation, CN II-XII grossly intact. ABSENT: motor sensory deficit Psychiatric exam: PRESENT: anxious, appropriate affect, normal mood. ABSENT: homicidal ideation, suicidal ideation Skin exam: PRESENT: dry, intact, warm. ABSENT: cyanosis, rash Results Laboratory Results: 07/31/18 05:46 07/31/18 05:46 07/27/18 07/27/18 07/28/18 19:42 21:30 00:53 Creatine Kinase CK-MB (CK-2) 2.87 Troponin I Cancelled < 0.012 < 0.012 NT-Pro-B Natriuret Pep 67 07/28/18 07/28/18 07/28/18 00:53 08:46 08:58 Creatine Kinase 512 H 543 H CK-MB (CK-2) 4.40 Troponin I < 0.012 NT-Pro-B Natriuret Pep 07/28/18 07/28/18 14:36 14:36 Creatine Kinase 508 H CK-MB (CK-2) 5.24 H Troponin I < 0.012 NT-Pro-B Natriuret Pep Impressions: Chest X-Ray 07/27/18 17:54 IMPRESSION: NO ACUTE RADIOGRAPHIC FINDING IN THE CHEST. Assessment & Plan - Diagnosis (1) Acute exacerbation of chronic obstructive pulmonary disease (COPD) Is this a current diagnosis for this admission?: Yes Plan: Will obtain repeat CXR, PFT, daily peak flow meter. Consider pulmonology consultation. Patient was admitted to the medical floor. She was empirically treated with Levaquin; has completed full course of therapy. She was supported with supplemental oxygen, scheduled and as needed nebulizer treatments, and prednisone. Start Spiriva and Symbicort. Encourage ambulation. The patient continues to fail oxygen qualification; 86% on room air while at rest; 89-91% on supplemental oxygen at 2 L/min. Patient appears to be comfortable without increased tachypnea, tachycardia, or work of breathing. Possible baseline status. (2) Acute respiratory failure with hypoxia Is this a current diagnosis for this admission?: Yes Plan: As above. (3) Hypothyroidism Is this a current diagnosis for this admission?: Yes Plan: New diagnosis based on labs Started on Low dose synthroid. Will need prescription at discharge Should have repeat thyroid function test in 2 months (4) Tobacco use disorder, moderate, dependence Is this a current diagnosis for this admission?: Yes Plan: Smoking cessation is encouraged, nicotine replacement therapies are provided. - Time Time Spent with patient: 25-34 minutes Smoking Cessation Education: over 10 minutes Medications reviewed and adjusted accordingly: Yes Anticipated discharge: Home Within: within 48 hours
--- NOTE | 2018-08-01 17:10 | RADIOLOGY REPORT (SQ) ---
EXAM DESCRIPTION: CHEST SINGLE VIEW COMPLETED DATE/TIME: 08/01/2018 4:46 pm REASON FOR STUDY: hypoxia, dyspnea COMPARISON: AP chest 07/27/2018 EXAM PARAMETERS: NUMBER OF VIEWS: One view. TECHNIQUE: Single frontal radiographic view of the chest acquired. RADIATION DOSE: NA LIMITATIONS: None. FINDINGS: LUNGS AND PLEURA: Trace bilateral pleural effusions are present. Minimal bibasilar atelectasis. No pneumothorax. MEDIASTINUM AND HILAR STRUCTURES: No masses. Contour normal. HEART AND VASCULAR STRUCTURES: No cardiomegaly BONES: No acute findings. HARDWARE: None in the chest. OTHER: No other significant finding. IMPRESSION: Trace bilateral pleural effusions are present with bibasilar atelectasis TECHNICAL DOCUMENTATION: JOB ID: [id number] [employer]- All Rights Reserved Reading location - IP/workstation name: [email or web address]
[2018-08-01] MEDS: BUDESONIDE/FORMOTEROL 160-4.5 MCG 60 PUFF/6 GM MDI IH SCH (21:45)
[2018-08-02] MEDS: LEVOTHYROXINE SODIUM 0.025 MG TABLET PO SCH (05:48)
[2018-08-02] MEDS: LEVALBUTEROL HCL NEB 1.25 MG/3 ML AMPUL NEB SCH (08:21)
[2018-08-02] MEDS: IPRATROPIUM BROMIDE 0.02% NEB 0.5 MG/2.5 ML AMPUL NEB SCH (08:26)
[2018-08-02] MEDS: BUDESONIDE/FORMOTEROL 160-4.5 MCG 60 PUFF/6 GM MDI IH SCH (09:42)
[2018-08-02] MEDS: DOCUSATE SODIUM 100 MG CAPSULE PO SCH (09:42)
[2018-08-02] MEDS: FAMOTIDINE 20 MG TABLET PO SCH (09:42)
[2018-08-02] MEDS: FONDAPARINUX SODIUM INJ 2.5 MG/0.5 ML DISP.SYRIN SUBCUT SCH (09:42)
[2018-08-02] MEDS ORDERED: TIOTROPIUM BROMIDE DPI 5 CAP/KIT (18 MCG/CAP) IH SCH (10:00)
[2018-08-02] MEDS ORDERED: ALBUTEROL SULFATE HFA (90 MCG/PUFF) 200 PUFF/8.5 GM MDI IH PRN (10:19)
[2018-08-02] MEDS ORDERED: ONDANSETRON 4 MG TAB.RAPDIS PO PRN (10:30)
[2018-08-02] MEDS ORDERED: ONDANSETRON HCL INJ/PF 4 MG/2 ML SDV IV PRN (10:30)
[2018-08-02 13:02] VITALS: BP 144/98
--- NOTE | 2018-08-03 12:24 | Pulmonary Function Test ---
Pulmonary Function Test Date of Procedure:: 08/03/18 INDICATION:: Dyspnea Referring Provider: Ashley Driver - Report Spirometry: FVC 2.28 L 71% postbronchodilator 2.73 L 85% FEV1 1.03 L 40% postbronchodilator 1.12 L 44% FEV1/FVC % 45 postbronchodilator 41 predicted 80 FEF 25-75% 0.59 L 22% postbronchodilator 0.59 L 22% Impression: Severe obstructive ventilatory defect
--- NOTE | 2018-08-05 16:40 | PDOC DISCHARGE SUMMARY ---
General - Admit/Disc Date/PCP Admission Date/Primary Care Provider: 07/28/18 01:52 Discharge Date: 08/02/18 - Discharge Diagnosis (1) Acute exacerbation of chronic obstructive pulmonary disease (COPD) Is this a current diagnosis for this admission?: Yes Summary: Initial and repeat chest x-rays were negative for acute findings. PFT revealed severe obstructive ventilatory defects. The patient was admitted to the medical floor and was empirically treated with Levaquin; completing a full course of therapy while inpatient. She was supported with supplemental oxygen with scheduled and as needed nebulizer treatments to maintain oxygen saturations greater than 88%. She was initially placed on IV Solu-Medrol which was weaned to p.o. prednisone. She was no longer on steroid therapy at time of discharge. She was started on Spiriva and Symbicort. At time of discharge, the patient was asymptomatic, and maintaining oxygen saturations while ambulatory on room air. She was instructed to follow-up with her primary care provider within 1 week; may consider pulmonology outpatient consultation. She is provided prescriptions for Spiriva, Symbicort, albuterol HFA, and NicoDerm patches. She was advised of the importance of smoking cessation and avoiding allergen/COPD triggers. She is instructed to return to the emergency department for any concerning symptoms. (2) Acute respiratory failure with hypoxia Is this a current diagnosis for this admission?: Yes Summary: Resolved. Evaluation management as above. (3) Hypothyroidism Is this a current diagnosis for this admission?: Yes Summary: New diagnosis; TSH 34.50, free T4 <0.07, 0.58 She has been started on low dose synthroid and provided a prescription at discharge. Should have repeat thyroid function test in 2 months (4) Hypertension Is this a current diagnosis for this admission?: Yes Summary: Patient is encouraged to eat a low sodium diet. She is advised on smoking cessation. She has been started on Lisinopril 5 mg daily and provided a prescription at discharge. (5) Tobacco use disorder, moderate, dependence Is this a current diagnosis for this admission?: Yes Summary: Smoking cessation was strongly encouraged. She has been provided a prescription for NicoDerm patches. - Additional Information Resuscitation Status: Full Code Discharge Diet: Cardiac Discharge Activity: Activity As Tolerated Prescriptions: Albuterol Sulfate [Proair HFA Inhalation Aerosol 8.5 gm MDI] 2 puff IH Q4HP PRN #1 hfa.[email or web address] PRN Reason: Budesonide/Formoterol Fumarate [Symbicort HFA 160-4.5 mcg Inhaler 6 gm] 2 puff IH Q12 #1 inhaler Levothyroxine Sodium [Synthroid 0.025 mg Tablet] 0.025 mg PO Q6AM #30 tablet Lisinopril [Prinivil 5 mg Tablet] 5 mg PO DAILY #30 tablet Nicotine [Nicoderm 21 mg/24 Hr Transderm Patch] 1 each TD DAILYP PRN #30 patch.td24 PRN Reason: Tiotropium [place] [Spiriva Handihaler 5 Cap/Kit (18 Mcg/Cap)] 1 cap IH DAILY #1 kit Home Medications: Albuterol Sulfate [Proair HFA Inhalation Aerosol 8.5 gm MDI] 1 puff IH Q4 PRN 07/28/18 Acetaminophen [Tylenol 325 mg Tablet] 650 mg PO Q4HP PRN tablet 08/02/18 Albuterol Sulfate [Proair HFA Inhalation Aerosol 8.5 gm MDI] 2 puff IH Q4HP PRN #1 hfa.aer.ad 08/02/18 Budesonide/Formoterol Fumarate [Symbicort HFA 160-4.5 mcg Inhaler 6 gm] 2 puff IH Q12 #1 inhaler 08/02/18 Guaifenesin [Robitussin Syrup 200 mg/10 ml Ud Cup] 200 mg PO Q4HP PRN udc 08/02/18 Ibuprofen [Motrin 800 mg Tablet] 800 mg PO Q6HP PRN tablet 08/02/18 Levothyroxine Sodium [Synthroid 0.025 mg Tablet] 0.025 mg PO Q6AM #30 tablet 08/02/18 Lisinopril [Prinivil 5 mg Tablet] 5 mg PO DAILY #30 tablet 08/02/18 Nicotine [Nicoderm 21 mg/24 Hr Transderm Patch] 1 each TD DAILYP PRN #30 patch.td24 08/02/18 Tiotropium [place] [Spiriva Handihaler 5 Cap/Kit (18 Mcg/Cap)] 1 cap IH DAILY #1 kit 08/02/18 History of Present Illness History of Present Illness: Per H&P by Dr. Weber: HARJIT HERNANDEZ is a 48 year old female who presented to the emergency room with a 3-day history of a cough with dyspnea. She admits that approximately 3 days ago she began having a cough that was initially productive of thick yellow mucus in small amounts but has subsequently become nonproductive or productive only of thin clear mucus. The cough is associated with dyspnea initially only with exertion but over the course of her illness dyspnea has become severe and present even when she is at rest. Additionally over the course of the illness she has experienced generalized malaise with a subjective fever and chills beginning the day after the onset of the illness and still being present at the time of her presentation. She also had diarrhea for 1 day beginning the day after her initial symptoms. She denies prior similar symptoms and has not identified any aggravating or ameliorating factors for her dyspnea and cough. She admits use of her sons inhaler but it did not have any positive effect on her symptoms. In the emergency room she was found to have a oxygen saturation of 88% and despite aggressive treatment with steroids and nebulizer therapy she was unable to maintain an oxygen saturation greater than 93% without supplemental oxygen. She was subsequently admitted to the hospital for further evaluation and treatment of her acute hypoxic respiratory failure Physical Exam Vital Signs: Temp Pulse Resp BP Pulse Ox 98.4 F 85 16 144/98 H 89 L 08/02/18 11:49 08/02/18 11:49 08/02/18 11:49 08/02/18 11:49 08/02/18 11:49 General appearance: PRESENT: no acute distress, well-developed, well-nourished Head exam: PRESENT: atraumatic, normocephalic Eye exam: PRESENT: conjunctiva pink, EOMI, PERRLA. ABSENT: scleral icterus Ear exam: PRESENT: normal external ear exam Mouth exam: PRESENT: moist, tongue midline Neck exam: ABSENT: carotid bruit, JVD, lymphadenopathy, thyromegaly Respiratory exam: PRESENT: decreased breath sounds - Bibasilar, prolonged expiratory phas, symmetrical, unlabored. ABSENT: rales, rhonchi, wheezes Cardiovascular exam: PRESENT: RRR. ABSENT: diastolic murmur, rubs, systolic murmur Pulses: PRESENT: normal dorsalis pedis pul Vascular exam: PRESENT: normal capillary refill GI/Abdominal exam: PRESENT: normal bowel sounds, soft. ABSENT: distended, guarding, mass, organolmegaly, rebound, tenderness Rectal exam: PRESENT: deferred Extremities exam: PRESENT: full ROM. ABSENT: calf tenderness, clubbing, pedal edema Neurological exam: PRESENT: alert, awake, oriented to person, oriented to place, oriented to time, oriented to situation, CN II-XII grossly intact. ABSENT: motor sensory deficit Psychiatric exam: PRESENT: appropriate affect, normal mood. ABSENT: homicidal ideation, suicidal ideation Skin exam: PRESENT: dry, intact, warm. ABSENT: cyanosis, rash Results Laboratory Results: 07/31/18 05:46 07/31/18 05:46 07/27/18 07/27/18 07/28/18 19:42 21:30 00:53 Creatine Kinase CK-MB (CK-2) 2.87 Troponin I Cancelled < 0.012 < 0.012 NT-Pro-B Natriuret Pep 67 07/28/18 07/28/18 07/28/18 00:53 08:46 08:58 Creatine Kinase 512 H 543 H CK-MB (CK-2) 4.40 Troponin I < 0.012 NT-Pro-B Natriuret Pep 07/28/18 07/28/18 14:36 14:36 Creatine Kinase 508 H CK-MB (CK-2) 5.24 H Troponin I < 0.012 NT-Pro-B Natriuret Pep Impressions: Chest X-Ray 08/01/18 00:00 IMPRESSION: Trace bilateral pleural effusions are present with bibasilar atelectasis Qualifiers - * PATIENT BEING DISCHARGED WITH ANY OF THE FOLLOWING DIAGNOSIS: No Plan Discharge Plan: The patient is discharged home with self-care. She is advised to follow-up with the [facility] as scheduled. She has been provided prescriptions for Spiriva, Symbicort, and albuterol HFA. She has been educated on the importance of smoking cessation and provided prescriptions for NicoDerm patches. She is instructed to return to the emergency department as needed for concerning symptoms. Time Spent: Less than 30 Minutes
== END 2018-08-02 13:02 | disposition home or self-care (01) | DRG 190 ==
LOC: ER 16:37 → EH 07-28 01:52 → 2N 07-28 06:05
PROVIDERS: ADMIT Emergency Medicine; ATTEND Emergency Medicine
DX: J44.1 Chronic obstructive pulmonary disease with (acute) exacerbation (principal); J96.01 Acute respiratory failure with hypoxia; F17.200 Nicotine dependence, unspecified, uncomplicated; E03.9 Hypothyroidism, unspecified; D64.9 Anemia, unspecified; Z82.49 Family history of ischemic heart disease and other diseases of the circulatory system; Z88.0 Allergy status to penicillin
CPT/HCPCS: 36415; 71045; 80048; 80053; 80061; 82550; 82553; 83036; 83735; 83880; 84439; 84443; 84481; 84484; 85025; 87804; 93005; 93010; 94060; 94640; 94667; 94799; 96374; 99285; J1652; J1956; J2405; J2920; J2930; J3490; J7030; J7120; J7512; J7620

== ENCOUNTER → 2019-11-12 | Outpatient (CLI) | payer OTHER ==
[2019-11-12 16:34] LABS: ABSOLUTE BASOPHILS # (AUTO) 0.1 10^3/uL (0.0-0.2); ABSOLUTE EOSINOPHILS # (AUTO) 0.3 10^3/uL (0.0-0.6); ABSOLUTE MONOCYTES (AUTO) 0.7 10^3/uL (0.1-1.4); ABSOLUTE NEUT (AUTO) 7.6 10^3/uL (1.7-8.2); BASOPHILS % (AUTO) 0.7 % (0-2); EOSINOPHILS % (AUTO) 3.1 % (0-6); HEMATOCRIT 36.7 % (36.0-47.0); HEMOGLOBIN 12.6 g/dL (12.0-15.5); LYMPHOCYTES % (AUTO) 18.8 % (13-45); MEAN CORPUSCULAR HEMOGLOBIN 31.7 pg (27.0-33.4); MEAN CORPUSCULAR HGB CONC 34.3 g/dL (32.0-36.0); MEAN CORPUSCULAR VOLUME 93 fl (80-97); MONOCYTES % (AUTO) 6.2 % (3-13); PLATELET COUNT 427 10^3/uL (150-450); RED BLOOD COUNT 3.97 10^6/uL (3.72-5.28); RED CELL DISTRIBUTION WIDTH 13.5 % (11.5-14.0); SEGMENTED NEUTROPHILS % (AUTO) 71.2 % (42-78); TOTAL CELLS COUNTED % (AUTO) 100 %; WHITE BLOOD COUNT 10.7 10^3/uL (4.0-10.5)
[2019-11-12 16:49] LABS: ALKALINE PHOSPHATASE 58 U/L (38-126); ANION GAP 7 (5-19); ASPARTATE AMINO TRANSFERASE 46 U/L (14-36); BILIRUBIN,TOTAL 0.3 mg/dL (0.2-1.3); BLOOD UREA NITROGEN 12 mg/dL (7-20); CALCIUM 9.8 mg/dL (8.4-10.2); CARBON DIOXIDE 29 mmol/L (22-30); CHLORIDE 102 mmol/L (98-107); GLUCOSE 114 mg/dL (75-110); POTASSIUM 4.6 mmol/L (3.6-5.0); TOTAL PROTEIN 6.7 g/dL (6.3-8.2)
[2019-11-12 17:07] LABS: FREE T3 3.51 pg/mL (2.77-5.27); FREE T4 (FREE THYROXINE) 1.4 ng/dL (0.78-2.19)
[2019-11-12 17:21] LABS: THYROID STIMULATING HORMONE 4.94 uIU/mL (0.47-4.68)
== END ==
LOC: OD 14:59
PROVIDERS: ATTEND Family Medicine
DX: Z00.00 Encounter for general adult medical examination without abnormal findings (principal); E03.9 Hypothyroidism, unspecified
CPT/HCPCS: 36415; 80053; 83036; 84439; 84443; 84481; 85025

== ENCOUNTER 2019-11-22 14:38 | Emergency (ER) | payer SELFPAY ==
--- NOTE | 2019-11-22 15:28 | ER Document Report ---
HPI - HPI Patient complains to provider of: ankle pain Time Seen by Provider: 11/22/19 15:26 Onset: Last week Onset/Duration: Sudden Quality of pain: Achy Pain Level: 1 Associated Symptoms: None Exacerbated by: Movement Similar symptoms previously: No Notes: This is a 49-year-old female present to the emergency room today stating that she had pain to her left ankle which is been ongoing for approximately 2 weeks she denies any prior injury to the affected area she states that it is worse b ecause she is on her feet all day. - REPRODUCTIVE Reproductive: DENIES: : Past Medical History - General Information source: Patient - Social History Smoking Status: Current Every Day Smoker Frequency of alcohol use: None Drug Abuse: None Family History: CAD, Hypertension Patient has homicidal ideation: No - Past Medical History Cardiac Medical History: Denies: Hx Coronary Artery Disease, Hx Hypertension Pulmonary Medical History: Denies: Hx Asthma, Hx COPD, Hx Respiratory Failure Neurological Medical History: Denies: Hx Seizures Endocrine Medical History: Denies: Hx Diabetes Mellitus Type 1, Hx Diabetes Mellitus Type 2 Renal/ Medical History: Denies: Hx Peritoneal Dialysis GI Medical History: Denies: Hx Cirrhosis, Hx Hepatitis Musculoskeletal Medical History: Denies Hx Arthritis, Denies Hx Gout Skin Medical History: Denies Hx Eczema, Denies Hx Psoriasis Infectious Medical History: Denies: Hx Hepatitis Past Surgical History: Reports: Hx Section, Hx Orthopedic Surgery - right foot Vertical Provider Document - CONSTITUTIONAL Agree With Documented VS: Yes - INFECTION CONTROL TRAVEL OUTSIDE OF THE [place] IN LAST 30 DAYS: No - HEENT HEENT: Atraumatic, Conjuctival Injection, Normocephalic, PERRLA - NECK Neck: Normal Inspection - RESPIRATORY Respiratory: Breath Sounds Normal, No Respiratory Distress - CARDIOVASCULAR Cardiovascular: Regular Rate, Regular Rhythm - GI/ABDOMEN Gastrointestinal: Abdomen Soft, Abdomen Non-Tender - REPRODUCTIVE Female Genitalia: Normal Inspection - BACK Back: Normal Inspection - MUSCULOSKELETAL/EXTREMETIES Musculoskeletal/Extremeties: MAEW, Tender - Tenderness to the medial aspect of the left ankle she is ambulatory with a rhythmic and steady gait. - NEURO Level of Consciousness: Awake, Alert, Appropriate - DERM Integumentary: Warm, Dry Course - Vital Signs Vital signs: Temp Pulse Resp BP Pulse Ox 98.5 F 109 H 18 123/77 95 11/22/19 15:21 11/22/19 14:42 11/22/19 14:42 11/22/19 14:42 11/22/19 14:42 - Diagnostic Test Radiology results interpreted by me: 11/22/19 16:38 Ankle X-Ray 11/22/19 15:26 IMPRESSION: Bimalleolar soft tissue swelling without an associated acute osseous abnormality of the ankle. Discharge - Discharge Clinical Impression: Laceration Condition: Good Disposition: HOME, SELF-CARE Instructions: Soft Ankle Splint ([facility]), Sprained Ankle ([facility]) Prescriptions: Diclofenac Sodium [Diclofenac Sodium ER] 100 mg PO DAILY #10 tab.er.24h Referrals: [facility] [Primary Care Provider] - Follow up as needed
--- NOTE | 2019-11-22 16:12 | RADIOLOGY REPORT (SQ) ---
EXAM DESCRIPTION: ANKLE LEFT COMPLETE IMAGES COMPLETED DATE/TIME: 11/22/2019 4:00 pm REASON FOR STUDY: pain COMPARISON: None. NUMBER OF VIEWS: Three views. TECHNIQUE: AP, lateral, and oblique radiographic images acquired of the left ankle. LIMITATIONS: None. FINDINGS: MINERALIZATION: Normal. BONES: No acute fracture or dislocation. The ankle mortise and talar dome are intact. JOINTS: No effusions. SOFT TISSUES: Bimalleolar soft tissue swelling. OTHER: No other finding. IMPRESSION: Bimalleolar soft tissue swelling without an associated acute osseous abnormality of the ankle. TECHNICAL DOCUMENTATION: JOB ID: [id number] 2010 [employer] All Rights Reserved Reading location - IP/workstation name: [email or web address]
[2019-11-22 16:53] VITALS: BP 111/72
== END 2019-11-22 16:52 | disposition home or self-care (01) ==
LOC: ER 14:38
DX: M25.572 Pain in left ankle and joints of left foot (principal); F17.200 Nicotine dependence, unspecified, uncomplicated
CPT/HCPCS: 99283

== ENCOUNTER → 2019-11-27 | Outpatient (CLI) | payer OTHER | LOC: CCC 14:27 | DX: E78.5 Hyperlipidemia, unspecified (principal); R74.8 Abnormal levels of other serum enzymes | CPT/HCPCS: 36415; 86803; 86804 ==

== ENCOUNTER 2019-12-09 12:38 | Emergency (ER) | payer SELFPAY ==
[2019-12-09 12:45] VITALS: BP 111/80
[2019-12-09] MEDS ORDERED: KETOROLAC TROMETHAMINE INJ/PF 30 MG/1 ML SDV IV ONE (12:52)
[2019-12-09] MEDS ORDERED: RINGERS SOLUTION,LACTATED 1,000 ML IV ONE (12:52)
--- NOTE | 2019-12-09 12:54 | ER Document Report ---
ED Medical Screen (RME) - General Chief Complaint: Flank Pain Stated Complaint: LEFT FLANK PAIN Time Seen by Provider: 12/09/19 12:48 Primary Care Provider: [facility] [Primary Care Provider] - Follow up as needed Mode of Arrival: Ambulatory Information source: Patient Notes: HPI;-year-old female presents emergency room complaining of pain to her left u pper quadrant area for the past 10 days. Worse today. Hurts to take a deep breath. Denies any trauma or injury. No urinary symptoms. No fevers. Has been taking Tylenol with minimal relief. Denies shortness of breath, denies chest pain. Denies nausea, denies vomiting. PE: Alert and oriented x3. Mild distress noted. Lungs with rhonchi no rales no wheezes. Heart: Tachycardic without murmurs, rubs, gallops. Tenderness to the left lower anterior ribs. No obvious deformity palpated. I have greeted and performed a rapid initial assessment of this patient. A comprehensive ED assessment and evaluation of the patient, analysis of test results and completion of the medical decision making process will be conducted by additional ED providers. I have specifically instructed the patient or family members with the patient to immediately return to any nursing staff should anything change in the patient's condition or with their chief complaint. TRAVEL OUTSIDE OF THE [place] IN LAST 30 DAYS: No - Related Data Allergies/Adverse Reactions: amoxicillin Allergy (Verified 07/27/18 17:40) Penicillins Allergy (Verified 07/27/18 17:40) Past Medical History - Past Medical History Cardiac Medical History: Denies: Hx Coronary Artery Disease, Hx Hypertension Pulmonary Medical History: Denies: Hx Asthma, Hx COPD, Hx Respiratory Failure Neurological Medical History: Denies: Hx Seizures Endocrine Medical History: Denies: Hx Diabetes Mellitus Type 1, Hx Diabetes Mellitus Type 2 Renal/ Medical History: Denies: Hx Peritoneal Dialysis GI Medical History: Denies: Hx Cirrhosis, Hx Hepatitis Musculoskeltal Medical History: Denies Hx Arthritis, Denies Hx Gout Skin Medical History: Denies Hx Eczema, Denies Hx Psoriasis Infectious Medical History: Denies: Hx Hepatitis Past Surgical History: Reports: Hx Section, Hx Orthopedic Surgery - right foot Physical Exam - Vital signs Vitals: Temp Pulse Resp BP Pulse Ox 98.7 F 112 H 16 111/80 95 12/09/19 12:43 12/09/19 12:43 12/09/19 12:43 12/09/19 12:43 12/09/19 12:43 Course - Vital Signs Vital signs: Temp Pulse Resp BP Pulse Ox 98.7 F 112 H 16 111/80 95 12/09/19 12:49 12/09/19 12:43 12/09/19 12:43 12/09/19 12:43 12/09/19 12:43 Doctor's Discharge - Discharge Referrals: [facility] [Primary Care Provider] - Follow up as needed
[2019-12-09 13:19] LABS: ABSOLUTE BASOPHILS # (AUTO) 0.1 10^3/uL (0.0-0.2); ABSOLUTE EOSINOPHILS # (AUTO) 0.3 10^3/uL (0.0-0.6); ABSOLUTE LYMPHOCYTES (AUTO) 2.1 10^3/uL (0.5-4.7); ABSOLUTE MONOCYTES (AUTO) 0.7 10^3/uL (0.1-1.4); ABSOLUTE NEUT (AUTO) 7.2 10^3/uL (1.7-8.2); EOSINOPHILS % (AUTO) 3.3 % (0-6); HEMATOCRIT 39.3 % (36.0-47.0); HEMOGLOBIN 13.3 g/dL (12.0-15.5); LYMPHOCYTES % (AUTO) 19.7 % (13-45); MEAN CORPUSCULAR HEMOGLOBIN 31.4 pg (27.0-33.4); MEAN CORPUSCULAR HGB CONC 33.9 g/dL (32.0-36.0); MEAN CORPUSCULAR VOLUME 93 fl (80-97); MONOCYTES % (AUTO) 7.1 % (3-13); PLATELET COUNT 426 10^3/uL (150-450); RED BLOOD COUNT 4.25 10^6/uL (3.72-5.28); RED CELL DISTRIBUTION WIDTH 14.3 % (11.5-14.0); SEGMENTED NEUTROPHILS % (AUTO) 68.9 % (42-78); TOTAL CELLS COUNTED % (AUTO) 100 %; WHITE BLOOD COUNT 10.4 10^3/uL (4.0-10.5)
--- NOTE | 2019-12-09 13:23 | RADIOLOGY REPORT (SQ) ---
EXAM DESCRIPTION: CHEST 2 VIEWS IMAGES COMPLETED DATE/TIME: 12/09/2019 1:16 pm REASON FOR STUDY: cough COMPARISON: AP view of the chest from 08/01/2018. EXAM PARAMETERS: NUMBER OF VIEWS: Two views. TECHNIQUE: PA and lateral views of the chest were obtained. RADIATION DOSE: NA LIMITATIONS: None. FINDINGS: LUNGS AND PLEURA: No consolidation, pleural effusion or pneumothorax. MEDIASTINUM AND HILAR STRUCTURES: No mediastinal or hilar contour abnormality. HEART AND VASCULAR STRUCTURES: The cardiac silhouette and pulmonary vasculature are within normal melissa its. BONES: No acute findings. HARDWARE: None in the chest. OTHER: No other finding. IMPRESSION: No acute cardiopulmonary process. TECHNICAL DOCUMENTATION: JOB ID: [id number] 2010 [employer]- All Rights Reserved Reading location - IP/workstation name: [email or web address]
[2019-12-09 13:29] LABS: APPEARANCE,URINE SLIGHTLY-CLOUDY; BILIRUBIN,URINE NEGATIVE (NEGATIVE); COLOR,URINE YELLOW; GLUCOSE, URINE NEGATIVE (NEGATIVE); KETONES,URINE NEGATIVE (NEGATIVE); LEUKOCYTE ESTERASE,URINE NEGATIVE (NEGATIVE); NITRITE,URINE NEGATIVE (NEGATIVE); PROTEIN,URINE NEGATIVE (NEGATIVE); URINE SPECIFIC GRAVITY 1.025; UROBILINOGEN,URINE NEGATIVE mg/dL (<2.0)
[2019-12-09 13:37] LABS: ALBUMIN 4.2 g/dL (3.5-5.0); ALKALINE PHOSPHATASE 64 U/L (38-126); ANION GAP 6 (5-19); ASPARTATE AMINO TRANSFERASE 30 U/L (14-36); BILIRUBIN,TOTAL 0.4 mg/dL (0.2-1.3); BLOOD UREA NITROGEN 12 mg/dL (7-20); CALCIUM 9.7 mg/dL (8.4-10.2); CARBON DIOXIDE 27 mmol/L (22-30); CHLORIDE 106 mmol/L (98-107); GLUCOSE 100 mg/dL (75-110); POTASSIUM 4.1 mmol/L (3.6-5.0); TOTAL PROTEIN 7.1 g/dL (6.3-8.2)
--- NOTE | 2019-12-09 16:45 | RADIOLOGY REPORT (SQ) ---
EXAM DESCRIPTION: CT ABD/PELVIS NO ORAL OR IV IMAGES COMPLETED DATE/TIME: 12/09/2019 4:27 pm REASON FOR STUDY: flank pain COMPARISON: None. TECHNIQUE: CT scan of the abdomen and pelvis performed without intravenous or oral contrast. Images reviewed with lung, soft tissue, and bone windows. Reconstructed coronal and sagittal MPR images revi ewed. All images stored on PACS. All CT scanners at this facility use dose modulation, iterative reconstruction, and/or weight based d osing when appropriate to reduce radiation dose to as low as reasonably achievable (ALARA). [facility]: Dose Right [facility]: CareDose [facility]: Dose Right [facility]: Teradose 4D [facility]: Smart [employer] RADIATION DOSE: CT Rad equipment meets quality standard of care and radiation dose reduction techniq ues were employed. CTDIvol: 8.8 mGy. DLP: 413 mGy-cm.mGy. LIMITATIONS: None. FINDINGS: LOWER CHEST: No significant findings. No nodules or infiltrates. NON-CONTRASTED LIVER, SPLEEN, ADRENALS: Evaluation limited by lack of IV contrast. No identified sign ificant masses. PANCREAS: No masses. No peripancreatic inflammatory changes. GALLBLADDER: No identified stones by CT criteria. No inflammatory changes to suggest cholecystitis. RIGHT KIDNEY AND URETER: No suspicious masses. Assessment limited by lack of IV contrast. Tiny nono bstructing lower calyceal calculus. No hydronephrosis or hydroureter. LEFT KIDNEY AND URETER: No suspicious masses. Assessment limited by lack of IV contrast. A tiny live culus is seen on image 28 series 3. This is likely vascular. No hydronephrosis or hydroureter. AORTA AND RETROPERITONEUM: No aneurysm. No retroperitoneal masses or adenopathy. BOWEL AND PERITONEAL CAVITY: No obvious masses or inflammatory changes. No free fluid. APPENDIX: Normal. PELVIS, BLADDER, AND ABDOMINAL WALL:No abnormal masses. No free fluid. Bladder normal. BONES: Grade 2 anterolisthesis of L4 on L5 with reactive marrow changes in the vertebrae. OTHER: No other significant finding. IMPRESSION: There is a tiny nonobstructing lower calyceal calculus on the right. No urinary calculu s is appreciated on the left side. Osseous findings as described. COMMENT: Quality ID # [id number]: Final reports with documentation of one or more dose reduction techniques (e.g., Automated exposure control, adjustment of the mA and/or kV according to patient size, use of iterative reconstruction technique) TECHNICAL DOCUMENTATION: JOB ID: [id number] 2010 [employer]- All Rights Reserved Reading location - IP/workstation name: [email or web address]
--- NOTE | 2019-12-09 17:06 | ER Document Report ---
ED General - General Chief Complaint: Flank Pain Stated Complaint: LEFT FLANK PAIN Time Seen by Provider: 12/09/19 12:48 Primary Care Provider: [facility] [NO LOCAL MD] - Follow up as needed Mode of Arrival: Ambulatory Information source: Patient TRAVEL OUTSIDE OF THE [place] IN LAST 30 DAYS: No - HPI Notes: Patient presents with left-sided flank pain. She states has had this for approximately 4 to 5 days. She states it was sudden onset. It is intermittent. It is moderate to severe in intensity when she does have the pain. It is sharp. It does radiate up and down her left side. It is worse with movement a nd better with rest. She has no previous history of kidney stones she has not appreciated any blood in her urine. She has had no cough cold or congestion. She has no known trauma. - Related Data Allergies/Adverse Reactions: amoxicillin Allergy (Verified 07/27/18 17:40) Penicillins Allergy (Verified 07/27/18 17:40) Past Medical History - General Information source: Patient - Social History Smoking Status: Current Every Day Smoker Frequency of alcohol use: None Drug Abuse: None Family History: CAD, Hypertension - Past Medical History Cardiac Medical History: Denies: Hx Coronary Artery Disease, Hx Hypertension Pulmonary Medical History: Denies: Hx Asthma, Hx COPD, Hx Respiratory Failure Neurological Medical History: Denies: Hx Seizures Endocrine Medical History: Denies: Hx Diabetes Mellitus Type 1, Hx Diabetes Mellitus Type 2 Renal/ Medical History: Denies: Hx Peritoneal Dialysis GI Medical History: Denies: Hx Cirrhosis, Hx Hepatitis Musculoskeletal Medical History: Denies Hx Arthritis, Denies Hx Gout Skin Medical History: Denies Hx Eczema, Denies Hx Psoriasis Infectious Medical History: Denies: Hx Hepatitis Past Surgical History: Reports: Hx Section, Hx Orthopedic Surgery - right foot Review of Systems - Review of Systems Constitutional: denies: Chills, Fever Cardiovascular: Chest pain. denies: Palpitations - Left lateral chest Respiratory: Cough - Chronic with her COPD. denies: Short of breath -: Yes All other systems reviewed and negative Physical Exam - Vital signs Vitals: Temp Pulse Resp BP Pulse Ox 98.7 F 112 H 16 111/80 95 12/09/19 12:43 12/09/19 12:43 12/09/19 12:43 12/09/19 12:43 12/09/19 12:43 Interpretation: Tachycardic - General General appearance: Appears well, Alert - HEENT Head: Normocephalic, Atraumatic Eyes: Normal Pupils: PERRL - Respiratory Respiratory status: No respiratory distress Chest status: Nontender Breath sounds: Normal Chest palpation: Other - Patient's left lateral chest is tender to palpation but there is no crepitus or deformities. - Cardiovascular Rhythm: Regular - Heart is now regular rate and rhythm. Rate is 88. Heart sounds: Normal auscultation Murmur: No - Abdominal Inspection: Normal Distension: No distension Bowel sounds: Normal Tenderness: Nontender Organomegaly: No organomegaly - Back Back: Normal, Nontender - Extremities General upper extremity: Normal inspection, Nontender, Normal color, Normal ROM, Normal temperature General lower extremity: Normal inspection, Nontender, Normal color, Normal ROM, Normal temperature, Normal weight bearing. No: Jenny's sign - Neurological Neuro grossly intact: Yes Cognition: Normal Orientation: AAOx4 Randi Coma Scale Eye Opening: Spontaneous Randi Coma Scale Verbal: Oriented Randi Coma Scale Motor: Obeys Commands Randi Coma Scale Total: 15 Speech: Normal Motor strength normal: LUE, RUE, LLE, RLE Sensory: Normal - Psychological Associated symptoms: Normal affect, Normal mood - Skin Skin Temperature: Warm Skin Moisture: Dry Skin Color: Normal Course - Re-evaluation Re-evalutation: 12/09/19 17:02 Patient presents with left lateral chest pain that is mainly worse with movement. There are several possibilities. She could have an occult rib fracture or a pulled muscle. Also patient does have some blood in her urine. She states she no longer has menstrual periods for the last 2 years. So possibly she has recently passed a kidney stone. There is no hydro-on scan. I did discuss patient's vertebral changes noticed on CAT scan and patient states that she has previously been informed of this. - Vital Signs Vital signs: Temp Pulse Resp BP Pulse Ox 98.7 F 112 H 16 111/80 95 12/09/19 12:49 12/09/19 12:43 12/09/19 12:43 12/09/19 12:43 12/09/19 12:43 - Laboratory Result Diagrams: 12/09/19 13:06 12/09/19 13:06 Laboratory results interpreted by me: 12/09/19 12/09/19 12/09/19 13:06 13:06 13:06 RDW 14.3 H ALT 56 H Urine Blood MODERATE H - Diagnostic Test Radiology reviewed: Image reviewed, Reports reviewed Discharge - Discharge Clinical Impression: Left ureteral stone Condition: Stable Disposition: HOME, SELF-CARE Instructions: Kidney Stone ([facility]) Prescriptions: Tramadol HCl [Ultram] 50 mg PO Q6 PRN 3 Days #12 tablet PRN Reason: Forms: Return to Work Referrals: [facility] [NO LOCAL MD] - Follow up as needed
== END 2019-12-09 17:11 | disposition home or self-care (01) ==
LOC: ER 12:38
DX: N20.1 Calculus of ureter (principal); R10.9 Unspecified abdominal pain; R10.12 Left upper quadrant pain; R10.32 Left lower quadrant pain; R07.9 Chest pain, unspecified; R31.9 Hematuria, unspecified; Z88.0 Allergy status to penicillin; F17.200 Nicotine dependence, unspecified, uncomplicated; J44.9 Chronic obstructive pulmonary disease, unspecified
CPT/HCPCS: 36415; 71046; 74176; 80053; 81001; 83690; 85025; 99284

== ENCOUNTER → 2020-05-25 | Outpatient (CLI) | payer OTHER ==
[2020-05-25 16:05] LABS: ANION GAP 8 (5-19); BLOOD UREA NITROGEN 11 mg/dL (7-20); CALCIUM 10.2 mg/dL (8.4-10.2); CARBON DIOXIDE 29 mmol/L (22-30); CHLORIDE 102 mmol/L (98-107); GLUCOSE 103 mg/dL (75-110); POTASSIUM 5.1 mmol/L (3.6-5.0)
== END ==
LOC: CCC 14:45
PROVIDERS: ATTEND Internal Medicine
DX: R73.03 Prediabetes (principal)
CPT/HCPCS: 36415; 80048; 83036